=== PATIENT | female | born 1985 | race Caucasian/White ===

== ENCOUNTER 2017-02-07 11:13 | Day surgery (SDC) | payer OTHER ==
[~2017-02-07 11:13] MED LIST: DEXAMETHASONE SOD PHOSPHATE 10 MG/ML 1 ML VIAL IV ONE; HYDROmorphone 1 MG/ML 1 ML SYRINGE IVP PRN; LACTATED RINGERS 1,000 ML IV SCH; MIDAZOLAM 2 MG/2 ML VIAL IV PRN; ONDANSETRON 4 MG/2 ML VIAL IVP ONE; Pre Op ABX Message 1 EACH MISC MISCELLANE ONE; SCOPOLAMINE 1.5MG/72HR PATCH TRANSDERM ONE
[2017-02-07 11:47] VITALS: TEMP 98.7
[2017-02-07] MEDS ORDERED: LIDOCAINE 1% 20 ML VIAL (10MG/ML) FOR IV START INTRADERMA ONE (11:54)
[2017-02-07] MEDS ORDERED: LIDOCAINE 1% INJ 10MG/ML (20 ML MDV) ONE (12:30)
[2017-02-07] MEDS ORDERED: PROPOFOL 10 MG/ML 20 ML VIAL IV ONE (12:30)
[2017-02-07] MEDS ORDERED: MIDAZOLAM 2 MG/2 ML VIAL ONE (12:30)
[2017-02-07] MEDS ORDERED: fentaNYL (PF) 50 MCG/ML 2 ML AMP ONE (12:30)
[2017-02-07] MEDS ORDERED: BUPIVACAINE (PF) 0.5% 30 ML VIAL SQ ONE (12:38)
[2017-02-07] MEDS ORDERED: LIDOCAINE 2% INJ 20 MG/ML SQ ONE (12:38)
[2017-02-07 13:02] VITALS: RESP 16
[2017-02-07 13:38] VITALS: BP 122/78; PULSE 83
--- NOTE | 2017-02-08 08:24 | OP ---
DATE OF SERVICE: 02/07/2017 SURGEON: DELFINA GREENWOOD DO MECHANICAL ARTIST: PREOPERATIVE DIAGNOSES: 1. Mass, dorsal proximal phalanx, left little finger. 2. Perionychial infection, left ring finger. 3. Perionychial inflammation, left ring finger. POSTOPERATIVE DIAGNOSIS: OPERATION: 1. Excision of mass, dorsal left middle finger. 2. Partial nail removal, left ring finger. ANESTHESIA: ESTIMATED BLOOD LOSS: SPECIMENS REMOVED: COMPLICATIONS: OPERATIVE FINDINGS: INDICATIONS: A 31-year-old woman who has had a chronic skin lesion on the dorsal, middle phalanx of her left little finger associated with a mass. The purpose was to excise it along full thickness with clear margins for further diagnosis. In the preoperative area, she demonstrated perionychial inflammation of her left ring finger. On the lateral edge there was redness, swelling and ingrown nail deformity. Therefore, partial nail excision was also schedule and performed. DESCRIPTION OF PROCEDURE: A 31-year-old woman is taken to the operative suite, given IV sedation. I did a digital block of her left ring and middle fingers with a combination of Xylocaine and Marcaine, both without epinephrine. Hand was prepped and draped in the usual manner. Arm was elevated, exsanguinated and cuff was inflated 250 mmHg. A longitudinal elliptical incision was made over the mass dorsal aspect proximal phalanx of the left middle finger. Full-thickness skin was taken along with subcutaneous tissue. The lesion and mass appeared to be contained within the dermis and did not extend into the subcutaneous tissue deeper structures were normal appearing. Attention was then turned to the ring finger. The radial edge of the nail was gently lifted with a small curved hemostat and then cut longitudinally. Approximately 15 to 20% of the nail was removed with the remaining nail left intact. There were no signs of abscess or formation and there was really nothing to culture. This appeared to be a chronic inflammation with a foreign body-type reaction and not an infection per se. The tourniquet was released. Both wounds were irrigated. The middle finger was closed with running 5-0 nylon suture. No wound closure was indicated to the ring finger. Soft, bulky dressing was applied and patient was taken to recovery room in satisfactory condition.
== END 2017-02-07 13:51 | disposition home or self-care (01) ==
LOC: OR 11:13
PROVIDERS: ATTEND Orthopaedic Surgery Hand Surgery
DX: D23.62 Other benign neoplasm of skin of left upper limb, including shoulder (principal); L03.012 Cellulitis of left finger; Z91.041 Radiographic dye allergy status; Z87.891 Personal history of nicotine dependence
CPT/HCPCS: 81025; 88305; 11421; 11730; J2001 ×2; J2250; J1100; J2405; J3010; J2704

== ENCOUNTER → 2017-08-03 | Outpatient (CLI) | payer OTHER ==
--- NOTE | 2017-08-03 13:15 | US ---
EXAMINATION TYPE: US abdomen limited DATE OF EXAM: 08/03/2017 COMPARISON: US CLINICAL HISTORY: R94.5 Increased Liver Function. Elevated LFT's EXAM MEASUREMENTS: Liver Length: 20.9 cm Gallbladder Wall: 0.2 cm CBD: 0.4 cm Right Kidney: 11.2 x 5.3 x 5.4 cm Large pt body habitus, difficult exam Pancreas: Body wnl, head and tail obscured by overlying bowel gas Liver: Enlarged, heterogeneous, difficult to penetrate. This limits evaluation for underlying hepati c masses. Gallbladder: wnl Evidence for sonographic Chong's sign: No CBD: wnl Right Kidney: wnl, lower pole gassed out IMPRESSION: Heterogenous hepatic echotexture, most commonly related to hepatic steatosis, appearing m oderate in degree.
== END | disposition home or self-care (01) ==
LOC: RADUSWWP 11:03
PROVIDERS: ATTEND Internal Medicine
DX: K76.0 Fatty (change of) liver, not elsewhere classified (principal); R79.89 Other specified abnormal findings of blood chemistry
CPT/HCPCS: 76705

== ENCOUNTER 2017-10-31 13:27 | Emergency (ER) | payer OTHER ==
[2017-10-31] MEDS ORDERED: IBUPROFEN 800 MG TAB PO STA (14:28)
[2017-10-31] MEDS ORDERED: DEXAMETHASONE 4 MG TAB PO STA (14:28)
[2017-10-31 14:51] LABS: Appearance,Urine Clear (Clear); Bilirubin,Urine Negative (Negative); Blood,Urine Negative (Negative); Color,Urine Light Yellow; Glucose,Urine (UA) Negative (Negative); Ketones,Urine Negative (Negative); Leukocyte Esterase,Urine Negative (Negative); Nitrite,Urine Negative (Negative); Protein,Urine Negative (Negative); Specific Gravity,Urine 1.011 (1.001-1.035); Urobilinogen,Urine <2.0 mg/dL (<2.0)
--- NOTE | 2017-10-31 15:02 | ED ---
General Adult HPI - General Chief complaint: Back Pain/Injury Stated complaint: Back Pain Time Seen by Provider: 10/31/17 14:03 Source: patient, family Mode of arrival: ambulatory Limitations: no limitations - History of Present Illness Initial comments: Kate is an obese 32 yo female who presents to the ED today for progressively worsening right-sided back pain. 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 She states that she has been treating her back pain with by mouth Motrin, [place] balm cream and trying to stretch. She reports that the pain is worse with walking, it's located in her low back and radiates to the right side in the right hip. Pain completely resolves when she sits but she does experience some discomfort when laying flat. She reports she does not currently have any medical insurance therefore has not been able see a primary care physician. She discussed this pain with her sister who advised her she may have a kidney stone or kidney infection and that she needed to come to the emergency department for evaluation. Patient does report that she feels her urine is cloudy however she denies any dysuria, hematuria or foul odor. Patient does report a history of sciatic pain in the past, she states that this pain does not radiate down her leg and does not feel like previous sciatica. This pain is isolated to her right lower back with radiation lateral but no radiation into the abdomen. - Related Data Home Medications Medication Instructions Recorded Confirmed Ibuprofen [Motrin] 800 mg PO Q6H PRN 10/31/17 10/31/17 Previous Rx's Medication Instructions Recorded Gabapentin [Neurontin] 300 mg PO BID 14 Days #28 cap 10/31/17 Lidocaine [Lidoderm 5% Patch] 1 patch TRANSDERM DAILY #14 patch 10/31/17 Allergies Allergy/AdvReac Type Severity Reaction Status Date / Time Iodinated Contrast- Oral and Allergy Nausea & Verified 10/31/17 13:56 IV Dye Vomiting, [Iodinated Contrast Media - elevated Oral and] blood pressure Review of Systems ROS Statement: Those systems with pertinent positive or pertinent negative responses have been documented in the HPI. ROS Other: All systems not noted in ROS Statement are negative. Constitutional: Denies: fever Respiratory: Denies: cough Cardiovascular: Denies: chest pain Endocrine: Denies: fatigue Gastrointestinal: Denies: abdominal pain, nausea, vomiting Genitourinary: Denies: urgency, dysuria, frequency, hematuria, abnormal menses Musculoskeletal: Reports: back pain. Denies: joint swelling, myalgia Skin: Denies: rash, lesions Neurological: Denies: headache, weakness Psychiatric: Denies: anxiety, depression Hematological/Lymphatic: Denies: easy bleeding, easy bruising Past Medical History Past Medical History: Osteoarthritis (OA) Additional Past Medical History / Comment(s): past hx. elevated liver enzymes History of Any Multi-Drug Resistant Organisms: None Reported Past Surgical History: No Surgical Hx Reported Additional Past Surgical History / Comment(s): wisdom teeth removed, left middle finger Past Anesthesia/Blood Transfusion Reactions: No Reported Reaction Past Psychological History: No Psychological Hx Reported Smoking Status: Former smoker Past Alcohol Use History: Occasional Past Drug Use History: None Reported - Past Family History Mother Family Medical History: No Reported History General Exam Limitations: no limitations General appearance: alert, in no apparent distress Head exam: Present: atraumatic, normocephalic Eye exam: Present: normal appearance, PERRL ENT exam: Present: normal exam Neck exam: Present: normal inspection Respiratory exam: Present: normal lung sounds bilaterally. Absent: respiratory distress, wheezes Cardiovascular Exam: Present: normal rhythm, tachycardia GI/Abdominal exam: Present: soft. Absent: distended Rectal exam: Present: deferred Extremities exam: Present: normal inspection, full ROM, normal capillary refill. Absent: pedal edema Back exam: Present: normal inspection. Absent: CVA tenderness (R), CVA tenderness (L), muscle spasm, paraspinal tenderness, vertebral tenderness, rash noted Neurological exam: Present: alert, oriented X3, normal gait. Absent: abnormal gait, motor sensory deficit Psychiatric exam: Present: normal affect, normal mood Skin exam: Present: warm, dry. Absent: rash Course Vital Signs 10/31/17 10/31/17 13:36 15:10 Temperature 99.5 F 97.9 F Pulse Rate 110 H 84 Respiratory 18 16 Rate Blood Pressure 146/79 150/82 O2 Sat by Pulse 97 100 Oximetry Medical Decision Making - Medical Decision Making Patient was seen and evaluated, history was obtained from the patient History is consistent with musculoskeletal back pain which is worse with ambulating and certain positions results when sitting down or resting Patient has concern that her pain may be related to a urinary tract or kidney stone. I will obtain a urinalysis. Go exam is unremarkable, patient was requesting steroids for her back pain, however given that she doesn't have insurance I will give her by mouth Deltasone is this lasts for 3 days. In addition I will discharge her home with Lidoderm patches and gabapentin for her pain. Patient is agreeable to this though she states that if her pain improves with just the oral steroids she does not plan to fill these prescriptions. Patient currently does not have a PCP, or medical insurance. However I expressed to her the importance of having follow-up. A long conversation with the patient regarding the benefits of weight loss. Patient is aware that her weight is contributing to her chronic back pain as well as hastening the development of osteoarthritis. Patient is in agreement that she needs to lose weight. Urinalysis revealed no UTI His results were discussed with the patient who expresses relief. Patient states she feels that the first dose of gabapentin and Decadron are already helping her. All questions pertaining to care were answered to the best my ability and patient was discharged home in stable condition. - Lab Data Lab Results 10/31/17 Range/Units 13:41 Urine Color Light Yellow Urine Appearance Clear (Clear) Urine pH 5.0 (5.0-8.0) Ur Specific [place] 1.011 (1.001-1.035) Urine Protein Negative (Negative) Urine Glucose (UA) Negative (Negative) Urine Ketones Negative (Negative) Urine Blood Negative (Negative) Urine Nitrite Negative (Negative) Urine Bilirubin Negative (Negative) Urine Urobilinogen <2.0 (<2.0) mg/dL Ur Leukocyte Esterase Negative (Negative) Disposition Clinical Impression: Mechanical back pain Disposition: HOME SELF-CARE Condition: Good Instructions: Chronic Back Pain (ED) Prescriptions: Gabapentin [Neurontin] 300 mg PO BID 14 Days #28 cap Lidocaine [Lidoderm 5% Patch] 1 patch TRANSDERM DAILY #14 patch Referrals: None,Stated [Primary Care Provider] - 1-2 days Time of Disposition: 15:02
[2017-10-31 15:14] VITALS: BP 150/82; PULSE 84; RESP 16; TEMP 97.9
== END 2017-10-31 15:10 | disposition home or self-care (01) ==
LOC: EC 13:27
DX: M54.5 Low back pain (principal); R00.0 Tachycardia, unspecified; E66.9 Obesity, unspecified; Z68.41 Body mass index [BMI] 40.0-44.9, adult; Z87.891 Personal history of nicotine dependence; Z91.041 Radiographic dye allergy status
CPT/HCPCS: 99283; 81003; J8540